=== PATIENT | female | born 1965 | race Caucasian/White ===

== ENCOUNTER 2024-08-28 04:32 | Day surgery (SDC) | payer OTHER ==
[2024-08-24 10:35] VITALS: BMI 22.3
[2024-08-28] MEDS: ceFAZolin SODIUM 1 GM VIAL IVPB ONE ×2 (13:48→15:25)
[2024-08-28] MEDS ORDERED: oxyCODONE HCL 5 MG TABLET PO PRN (14:21)
[2024-08-28] MEDS ORDERED: ONDANSETRON 4 MG/2 ML VIAL IVPUSH PRN (14:21)
[2024-08-28] MEDS ORDERED: LACTATED RINGERS SOLUTION 1,000 ML IV SCH (14:30)
[2024-08-28] MEDS ORDERED: PROPOFOL 40 ML ONE (14:51)
[2024-08-28] MEDS ORDERED: MIDAZOLAM HCL 2 MG/2 ML SINGLE DOSE VIAL ONE (14:52)
[2024-08-28] MEDS ORDERED: MINERAL OIL/PETROLATUM,WHITE 3.5 GM TUBE ONE (15:27)
[2024-08-28 17:04] VITALS: TEMP 97.7
[2024-08-28 17:31] VITALS: BP 134/80; PULSE 84; RESP 17
== END 2024-08-28 17:38 | disposition home or self-care (01) ==
LOC: JASU-SURG 04:32
PROVIDERS: ATTEND Obstetrics & Gynecology
PROC: 0UB98ZZ Excision of Uterus, Via Natural or Artificial Opening Endoscopic (ICD-10-PCS; principal; 2024-08-28 13:00)
DX: N95.0 Postmenopausal bleeding (principal); N84.0 Polyp of corpus uteri
CPT/HCPCS: 86850; 86900; 86901; 88305-TC; 94760